=== PATIENT | female | born 1955 | race Hispanic/Latino ===

== ENCOUNTER 2019-01-20 21:25 | Emergency (ER) | payer MEDICARE ==
[~2019-01-20] VITALS: Ht 152.4 cm; Wt 73.9 kg
--- OUTSIDE RECORDS SUMMARY | 2019-01-20 21:28 | XMS REPORT ---
[facility] Address Unknown Phone Unavailable Care Team Providers Care Sas Programmer Name Role Phone Unavailable Unavailable Problems This patient has no known problems. Allergies, Adverse Reactions, Alerts This patient has no known allergies or adverse reactions. Medications This patient has no known medications. Encounters Start Date/Time End Date/Time Encounter Type Admission Type Attending [facility] Facility Care Department Encounter ID 2018-04-24 00:00:00 2018-04-24 00:00:00 Outpatient [facility] [id number] 2018-04-13 11:16:55 2018-04-13 11:16:55 Outpatient [facility] [id number] 2018-03-27 10:07:11 2018-03-27 10:07:11 Outpatient [facility] [id number] 2018-03-27 08:40:35 2018-03-27 08:40:35 Outpatient [facility] [id number] 2018-03-27 00:00:00 2018-03-27 00:00:00 Outpatient [facility] [id number] 2018-03-09 13:09:19 2018-03-09 13:09:19 Outpatient [facility] [id number] 2018-02-27 15:40:54 2018-02-27 15:40:54 Outpatient [facility] [id number] 2018-02-09 07:55:38 2018-02-09 07:55:38 Outpatient [facility] [id number] 2018-01-15 00:00:00 2018-01-15 00:00:00 Outpatient [facility] [id number] 2018-01-13 00:00:00 2018-01-13 00:00:00 Outpatient [facility] [id number] 2018-01-08 00:00:00 2018-01-08 00:00:00 Outpatient [facility] [id number] 2018-01-01 00:00:00 2018-01-01 00:00:00 Outpatient [facility] [id number] 2017-12-23 08:02:48 2017-12-23 08:02:48 Outpatient [facility] [id number] 2017-12-09 08:42:24 2017-12-09 08:42:24 Outpatient [facility] [id number] 2017-11-27 16:15:17 2017-11-27 16:15:17 Outpatient [facility] [id number] 2017-11-13 09:01:36 2017-11-13 09:01:36 Outpatient [facility] [id number] 2017-11-13 07:46:45 2017-11-13 07:46:45 Outpatient [facility] [id number] 2017-09-11 13:20:06 2017-09-11 13:20:06 Outpatient [facility] [id number]
[2019-01-20] MEDS ORDERED: ONDANSETRON HCL INJ 2MG/ML 2ML 2 MG/ML VIAL IV ONE (21:36)
[2019-01-20] MEDS ORDERED: PANTOPRAZOLE 40 MG 10ML VIAL IV ONE (21:36)
[2019-01-20 22:01] LABS: BASOPHILS % 0.2 % (0.0-1.0); EOSINOPHILS # (AUTO) 0.1 (0.0-0.4); EOSINOPHILS % 2.2 % (0.0-6.0); HEMOGLOBIN 13.6 g/dL (12.0-16.0); LYMPHOCYTES # (AUTO) 2.1 (1.0-3.2); LYMPHOCYTES % 35.5 % (18.0-39.1); MEAN CORPUSCULAR HEMOGLOBIN 30.4 pg (28-32); MEAN CORPUSCULAR HGB CONC 33.2 g/dL (31-35); MEAN CORPUSCULAR VOLUME 91.5 fL (81-99); MONOCYTES # (AUTO) 0.4 (0.2-0.8); MONOCYTES % 6.9 % (4.4-11.3); NEUTROPHILS # (AUTO) 3.2 (2.1-6.9); PLATELET COUNT 270 x10e3/uL (140-360); RED BLOOD COUNT 4.48 x10e6/uL (3.6-5.1); RED CELL DISTRIBUTION WIDTH 12.7 % (11.7-14.4)
[2019-01-20 22:23] LABS: ALANINE AMINOTRANSFERASE 17 IU/L (0-55); ALBUMIN/GLOBULIN RATIO 1.3 (0.8-2.0); ALKALINE PHOSPHATASE 150 IU/L (40-150); AMYLASE 55 U/L (25-125); ANION GAP 11.7 mmol/L (8-16); BLOOD UREA NITROGEN 10 mg/dL (7-26); BUN/CREATININE RATIO 13 (6-25); CALCIUM 9.4 mg/dL (8.4-10.2); CARBON DIOXIDE 27 mmol/L (22-29); CHLORIDE 101 mmol/L (98-107); CREATININE, SERUM 0.78 mg/dL (0.57-1.11); EST GLOMERULAR FILTRATION RATE > 60 ML/MIN (60-); GLUCOSE 120 mg/dL (74-118); LIPASE 50 U/L (8-78); POTASSIUM 3.7 mmol/L (3.5-5.1); SODIUM 136 mmol/L (136-145)
[2019-01-20 22:34] LABS: CREATINE KINASE MB 0.4 ng/mL (0-5.0)
[2019-01-20 22:38] LABS: CLARITY,URINE SL CLOUDY (CLEAR); COLOR,URINE YELLOW (YELLOW); LEUKOCYTE ESTERASE ,URINE 1+ (NEGATIVE); NITRITE,URINE NEGATIVE (NEGATIVE); URINE UROBILINOGEN 1 mg/dL (0.2 - 1)
[2019-01-20 22:39] LABS: BILIRUBIN,URINE SMALL (NEGATIVE); KETONES,URINE NEGATIVE (NEGATIVE); PROTEIN,URINE DIPSTICK NEGATIVE (NEGATIVE)
[2019-01-20 22:40] LABS: BACTERIA,URINE MODERATE /HPF; EPITHELIAL CELLS,URINE MODERATE /LPF
--- NOTE | 2019-01-20 23:13 | Diagnostic Imaging Report ---
EXAMINATION: CHEST SINGLE (PORTABLE) COMPARISON: None INDICATION: Lower chest pain ^SOB ^[id number] ^2240 ^Y DISCUSSION: Frontal view of the chest obtained at 2256 hours. HEART AND MEDIASTINUM: The cardiomediastinal silhouette is unremarkable. LINES: None. LUNGS: The lungs are well inflated and clear. No pneumonia or pulmonary edema. PLEURA: No pleural effusion or pneumothorax. BONES AND SOFT TISSUES: No focal osseous lesion. The soft tissues are normal. IMPRESSION: No acute cardiopulmonary disease. Signed by: Dr. Blaise Romero MD on 01/20/2019 11:10 PM
--- NOTE | 2019-01-20 23:49 | Diagnostic Imaging Report ---
CT Abdomen And Pelvis with Intravenous Contrast INDICATION: Epigastric pain and bloating, recent EGD and colonoscopy ^ABD PAIN ^[id number] ^0 ^Y TECHNIQUE: Thin collimation axial images obtained from the diaphragm to the level of the pubic symphysis following the uneventful administration of 100 cc of low osmolar, nonionic intravenous contrast. Dose reduction techniques used: Automated exposure control, adjustment of the mAs and/or kVp according to patient size, standardized low-dose protocol, and/or iterative reconstruction technique. RADIATION DOSE: Total DLP: 461.3 mGy*cm Estimated effective dose: (DLP x 0.015 x size factor) mSv CTDIvol has been reviewed. It is below the limits set by the Radiation Protocol Committee (RPC). COMPARISON: None. ABDOMEN FINDINGS: Lung Bases: Subsegmental atelectasis in the left lower lobe. Visual is portion of the mediastinum is normal. Liver: Steatosis. No evidence for mass. Gallbladder: Present and contains multiple hypoattenuating structures which may represent gallstones. The gallbladder drummond are diffusely hyperemic and not particularly thickened. No pericholecystic inflammation. Biliary tree: No biliary ductal dilatation Pancreas: Normal attenuation without mass or ductal dilatation. Spleen: Normal in size. No evidence of mass.. Adrenal Glands: No evidence for mass. Kidneys: Right: Normal enhancement. No soft tissue mass. No hydronephrosis. Left: Normal enhancement. No soft tissue mass. No hydronephrosis. Lymph Nodes: No enlarged abdominal or periaortic lymph nodes. Aorta: Normal in diameter PELVIS FINDINGS: Bowel: Stomach: Distended with water and is normal. Small Bowel: Normal in caliber with normal wall thickness. Large Bowel: Mild to moderate burden of formed stool from the cecum to the distal transverse colon. There is gaseous distention of the splenic flexure without significant dilatation. No pericolonic inflammation. No abnormal mural thickening. Appendix: Normal appendix. Bladder: Underdistended but otherwise normal. Uterus: Present and retroflexed in position. No adnexal mass. Peritoneum/retroperitoneum: No free fluid, fluid collection, or free air Bones: Degenerative changes of the spine, particularly at L5-S1. No focal osseous lesions.. IMPRESSION: 1. Gaseous distention of the splenic flexure of the colon without dilatation. No evidence of perforation. 2. Gallbladder filled with stones. Diffuse mural hyperemia without pericholecystic inflammation. This may represent adenomyosis. Please correlate for signs/symptoms of acute cholecystitis. No biliary ductal dilatation. 3. Steatosis. Signed by: Dr. Blaise Romero MD on 01/20/2019 11:46 PM
[2019-01-21 01:25] VITALS: BP 126/73
[2019-01-21] MEDS ORDERED: IOPAMIDOL 370 MG/ML 200 ML INFUS..BTL INJ ONE (05:54)
[2019-01-21] MEDS ORDERED: SODIUM CHLORIDE 0.9% 50ML 50 ML ONE (05:55)
== END 2019-01-21 00:45 | disposition home or self-care (01) ==
LOC: ER 21:25
DX: R14.0 Abdominal distension (gaseous) (principal); R10.13 Epigastric pain; R10.11 Right upper quadrant pain; K29.00 Acute gastritis without bleeding; K80.20 Calculus of gallbladder without cholecystitis without obstruction; G20 Parkinson's disease
CPT/HCPCS: 36415; 71045; 74177; 80053; 81001; 82150; 82550; 82553; 83690; 84484; 85025; 93005; 99283; C9113; J2405; Q9967

== ENCOUNTER 2019-11-25 14:19 | Emergency (ER) | payer MEDICARE ==
[~2019-11-25] VITALS: Ht 152.4 cm; Wt 73.9 kg
--- NOTE | 2019-11-25 15:24 | Diagnostic Imaging Report ---
Exam: Right knee 3 views History: Concern for fracture, felt pop in knee Comparison: None. Findings: No acute, displaced fracture or dislocation. Joint space is well-maintained. No joint effusion. Minimal quadriceps tendon enthesopathy on the superior pole of the patella. Soft tissues unremarkable Impression: No acute osseous abnormality. Signed by: Dr. Rubio Rosado M.D. on 11/25/2019 3:21 PM
--- NOTE | 2019-11-25 15:57 | Emergency Department Note ---
History of Present Illnes History of Present Illness Chief Complaint: Extremity Trauma/Pain History of Present Illness This is a 64 year old female . Chief Complaint Comment STATES SHE HEARD A POP WHILE SHE WAS WALKING DENIES TRAUMA SEEN BY DR CARLOS BARRETT [facility] Historian: Patient Arrival Mode: Car Director Of Physical Therapy Required: No Onset (how long ago): hour(s) Radiation: Reports non-radiation Severity: mild Onset quality: sudden Duration (how long): hour(s) Progression: unchanged Chronicity: new Context: Reports trauma/injury Past Medical/Family History Physician Review I have reviewed the patient's past medical and family history. Any updates have been documented here. Past Medical History Recent Fever: No Clinical Suspicion of Infectio: No New/Unexplained Change in Ment: No Other Medical History: [facility] Past Surgical History: Tubal Ligation Other Surgery: COLONOSCOPY EGD Other Last Tetanus: UTD Review of Systems Review of Systems Constitutional: Reports no symptoms EENTM: Reports no symptoms Cardiovascular: Reports no symptoms Respiratory: Reports no symptoms Gastrointestinal: Reports no symptoms Genitourinary: Reports no symptoms Musculoskeletal: Reports as per HPI, Reports muscle stiffness Integumentary: Reports no symptoms Neurological: Reports no symptoms Psychological: Reports no symptoms Endocrine: Reports no symptoms Hematological/Lymphatic: Reports no symptoms Physical Exam Related Data Allergies: Coded Allergies: Sulfa (Sulfonamide Antibiotics) (Verified Allergy, Unknown, 01/20/19) Triage Vital Signs Vital Signs Date Time Temp Pulse Resp B/P (MAP) Pulse Ox O2 Delivery O2 Flow Rate FiO2 11/25/19 14:44 98.0 77 18 117/93 98 Room Air Vital signs reviewed: Yes Physical Exam CONSTITUTIONAL Constitutional: Present well-developed, Present well-nourished HENT HENT: Present normocephalic, Present atraumatic, Present oropharynx clear/moist, Present nose normal HENT L/R: Present left ext ear normal, Present right ext ear normal EYES Eyes: Reports PERRL, Reports conjunctivae normal NECK Neck: Present ROM normal PULMONARY Pulmonary: Present effort normal, Present breath sounds normal CARDIOVASCULAR Cardiovascular: Present regular rhythm, Present heart sounds normal, Present capillary refill normal, Present normal rate GASTROINTESTINAL Abdominal: Present soft, Present nontender, Present bowel sounds normal GENITOURINARY Genitourinary: Present exam deferred SKIN Skin: Present warm, Present dry MUSCULOSKELETAL Musculoskeletal: Present tenderness, Present swelling; Absent deformity NEUROLOGICAL Neurological: Present alert, Present oriented x 3, Present no gross motor or sensory deficits PSYCHOLOGICAL Psychological: Present mood/affect normal, Present judgement normal Results Imaging Imaging results reviewed: Yes Impressions Findings: No acute, displaced fracture or dislocation. Joint space is well-maintained. No joint effusion. Minimal quadriceps tendon enthesopathy on the superior pole of the patella. Soft tissues unremarkable Impression: No acute osseous abnormality. Assessment & Plan Medical Decision Making MDM 64 yo well appearing F arrived to the ED with right knee pain, x-ray unremarkable. Pt understands she may need an MRI as an outpatient as may have a meniscal injury. Patient normal popliteal pulses in stable at time of discharge. Assessment & Plan Final Impression: (1) Knee sprain Depart Disposition: HOME, SELF-CARE Last Vital Signs Date Time Temp Pulse Resp B/P (MAP) Pulse Ox O2 Delivery O2 Flow Rate FiO2 11/25/19 14:44 98.0 77 18 117/93 98 Room Air CASEY GONZALEZ DO Nov 25, 2019 15:57
== END 2019-11-25 15:48 | disposition home or self-care (01) ==
LOC: ER 15:04
DX: M25.561 Pain in right knee (principal); S83.91XA Sprain of unspecified site of right knee, initial encounter; Y93.01 Activity, walking, marching and hiking; G20 Parkinson's disease
CPT/HCPCS: 99283